=== PATIENT | female | born 1965 | race African-American/Black ===

== ENCOUNTER 2016-10-03 14:21 | Emergency (ER) | payer OTHER ==
--- NOTE | 2016-10-03 15:26 | PHYS DOC ---
General Chief Complaint: BACK PAIN - NO INJURY Stated Complaint: LOW BACK PAIN,URINARY PROBLEMS Time Seen by MD: 14:24 Source: patient Problems: History of Present Illness Initial Comments 50-year-old male patient complaining of dizziness at onset of left flank and back pain for the last 4 days as a constant pain that sometimes radiated to the left lower quadrant. Patient states the pain is aching and atypical pain 6/10. Patient complaining of episodes of diarrhea for the same time and urinary frequency and dysuria. Patient denies fever chills, vomiting, sick contacts, focal neuro deficit, history of kidney stone. Patient didn't take pain medication at home and does not want pain medication in ER. Patient states she has had menstruation regularly and did not have any . Allergies: Coded Allergies: No Known Drug Allergies (Unverified , 10/03/16) Past Medical History Medical History: hypertension Review of Systems Constitutional: no symptoms reported EENTM: no symptoms reported Respiratory: no symptoms reported Cardiovascular: no symptoms reported Gastrointestinal: see HPI Genitourinary: see HPI Musculoskeletal: see HPI Skin: no symptoms reported Psychiatric/Neurological: no symptoms reported Hematologic/Lymphatic: no symptoms reported Immunological/Allergic: no symptoms reported All Other Systems: Reviewed and Negative Physical Exam General Appearance: WD/WN, mild distress Eyes: bilateral eye PERRL, bilateral eye normal inspection Ear, Nose, Throat: hearing grossly normal, normal ENT inspection, normal pharynx Neck: non-tender, full range of motion, supple Respiratory: chest non-tender, lungs clear, normal breath sounds, no respiratory distress Cardiovascular: normal peripheral pulses, regular rate, rhythm, no edema Gastrointestinal: normal bowel sounds, non tender, soft, no organomegaly, no pulsatile mass, other (suprapubic mass) Back: normal inspection, no CVA tenderness, no vertebral tenderness Extremities: normal range of motion, non-tender, normal inspection Neurologic/Psychiatric: no motor/sensory deficits, alert, normal mood/affect Skin: normal color Orders, Labs, Meds CT abdomen and pelvic ultrasound showed large uterine mass. Plan to transfer patient to [facility].Dr Austin accepted the transfer at 1810 Departure Departure: Impression: Primary Impression: Uterine mass Additional Impressions: Flank pain Urinary retention Disposition: XFER OTHER ([facility]) Condition: IMPROVED PRIMO WHITTEN MD Oct 03, 2016 15:26
[2016-10-03 15:29] LABS: BILIRUBIN,URINE NEG (NEG); CLARITY,URINE HAZY; COLOR,URINE STRAW; GLUCOSE,URINE NEG (NEG); NITRITE,URINE NEG (NEG); UROBILINOGEN,URINE 0.2 mg/dL (0.2 mg/dL)
[2016-10-03 15:30] LABS: BACTERIA,URINE FEW /HPF (0-FEW); RBC,URINE 0 /HPF (0-2); SQUAMOUS EPITHELIAL CELL,UR MOD /LPF
--- NOTE | 2016-10-03 15:30 | RAD ---
CT of the abdomen and pelvis without contrast, 10/03/2016: History: Left flank pain Noncontrast scans were obtained utilizing the renal stone protocol. This is a limited study for evaluation of the possibility of urinary tract calculi. There is a large pelvic mass which appears to represent an enlarged uterus. There is an 8 cm exophytic mass arising from the superior aspect of the uterus just to the right of midline. This extends into the lower abdomen. The main portion of the uterus from which this exophytic mass arises measures 10 x 13 x 14 cm and contains a 10 cm mass. There are several other smaller rounded masses producing a lobulated uterine contour. The appearance is that of uterine fibroids. There are numerous pelvic calcifications along the margins of the uterus compatible with phleboliths. There is a tiny 2 mm intrarenal radiopacity on the right compatible with a nonobstructing calculus. The right renal collecting system and proximal right ureter are not dilated. The distal ureters cannot be clearly traced through the pelvis in the presence of this large pelvic mass. The mass is compressing and displacing the partially filled urinary bladder anteriorly. No intrarenal calculi are seen on the left. A small low density area in the lower pole of left kidney is not clearly defined but is most likely a cyst. The left renal collecting system and proximal left ureter are mildly dilated. This is likely due to extrinsic compression by the large uterine mass. The possibility of a distal left ureteral calculus cannot be entirely excluded in the presence of these numerous pelvic calcifications and lack of clear delineation of the distal left ureter. The gallbladder is surgically absent. The unopacified liver is unremarkable. No pancreatic abnormality is seen. The spleen is of normal size. The abdominal aorta is unremarkable. No abdominal or pelvic adenopathy is seen. The bowel loops are not dilated. No free air is evident in the abdomen or pelvis. There is a small amount of free fluid in the cul-de-sac. This amount of fluid can be on a physiologic basis. There are mild to moderate degenerative changes in the lumbar spine. IMPRESSION: 1. Markedly enlarged fibroid uterus as described above. 2. Mild dilatation of the left renal collecting system and proximal left ureter is likely due to extrinsic compression by the enlarged uterus. A distal ureteral calculus cannot be entirely excluded. 3. Small nonobstructing right intrarenal calculus. 4. Probable small left renal cyst. 5. Small amount of free fluid in the pelvis. PQRS Compliance Statement: One or more of the following individualized dose reduction techniques were utilized for this examination: 1. Automated exposure control 2. Adjustment of the mA and/or kV according to patient size 3. Use of iterative reconstruction technique
[2016-10-03 15:31] LABS: YEAST,URINE PRESENT /HPF
[2016-10-03] MEDS ORDERED: IV NORMAL SALINE 500ML 500 ML IV ONE (17:30)
[2016-10-03] MEDS ORDERED: ONDANSETRON PF 4 MG/2 ML VIAL. IV ONE (17:45)
[2016-10-03] MEDS ORDERED: MORPHINE SULFATE 4 MG/ML DISP.SYRIN. IV ONE (17:45)
--- NOTE | 2016-10-03 17:46 | RAD ---
PROCEDURE Pelvic ultrasound with endovaginal imaging. HISTORY Low back pain for 4 days. Pelvic mass. TECHNIQUE Transabdominal imaging was performed for initial evaluation of the pelvis. Endovaginal imaging was performed for optimal characterization of the endometrium. COMPARISON CT abdomen pelvis October 03, 2016. FINDINGS Transabdominal imaging: Uterus measures 14.1 centimeters in length. The uterus is enlarged. Examination is technically difficult secondary to size of the uterus. The endometrium is not well seen. There is evidence of a subserosal, exophytic large uterine mass arising from the right aspect of the fundus measuring 8.8 centimeters in maximum dimension. There is an additional large, heterogeneous mass within what is thought to be the uterine body which measures 8.6 centimeters. A small amount of free fluid is present in the pelvis. The left ovary measures 2.2 x 1.9 x 2.4 centimeters and is unremarkable. Left ovary demonstrates normal vascular flow upon Doppler interrogation. Right ovary is not seen. Endovaginal imaging: Endometrium is not seen. Larger uterine mass which measures 7.4 centimeters in maximum dimension is seen. IMPRESSION 1. Limited examination. 2. There is presence of at least 2 large uterine masses. These are favored to represent uterine leiomyomata, although given large size of the masses, it would be difficult to exclude presence of uterine leiomyosarcoma as they can have identical ultrasound appearances. 3. Small amount of free fluid in the pelvis. This could be within normal limits if patient is premenopausal. Recommend clinical correlation. 4. Left ovary is unremarkable. Right ovary is not visualized. Electronically signed by: Trino Zamudio MD (Oct 03, 2016 17:44:52)
[2016-10-03 17:58] LABS: BASO # 0.1 x10^3/uL (0.0-0.2); BASO % 1 % (0-3); EOS # 0.1 x10^3/uL (0.0-0.7); EOS % 1 % (0-3); HEMATOCRIT 39.8 % (36.0-47.0); HEMOGLOBIN 12.9 g/dL (12.0-15.5); LYMPH # 1.8 x10^3/uL (1.0-4.8); LYMPH % 21 % (24-48); MEAN CORPUSCULAR HEMOGLOBIN 28 pg (25-35); MEAN CORPUSCULAR HGB CONC 33 g/dL (31-37); MEAN CORPUSCULAR VOLUME 87 fL (79-100); MONO # 0.7 x10^3/uL (0.0-1.1); MONO % 9 % (0-9); NEUT # 5.7 x10^3uL (1.8-7.7); NEUT % 68 % (31-73); PLATELET COUNT 272 x10^3/uL (140-400); RED BLOOD COUNT 4.56 x10^6/uL (3.50-5.40); RED CELL DISTRIBUTION WIDTH 14.6 % (11.5-14.5); WHITE BLOOD COUNT 8.5 x10^3/uL (4.0-11.0)
[2016-10-03 18:03] LABS: ALBUMIN 4.4 g/dL (3.4-5.0); GFR 58.2; POTASSIUM 3.6 mmol/L (3.5-5.1); TOTAL BILIRUBIN 0.6 mg/dL (0.2-1.0); TOTAL PROTEIN 8.9 g/dL (6.4-8.2)
[2016-10-03] MEDS ORDERED: MORPHINE SULFATE 2 MG/ML DISP.SYRIN. IV ONE (20:00)
[2016-10-03 20:48] VITALS: BP 111/71
== END 2016-10-03 21:00 | disposition short-term general hospital (02) ==
LOC: ER 14:21
DX: R19.09 Other intra-abdominal and pelvic swelling, mass and lump (principal); R33.9 Retention of urine, unspecified; M54.89 Other dorsalgia; R10.9 Unspecified abdominal pain; I10 Essential (primary) hypertension
CPT/HCPCS: 36415; 74176; 76856; 80053; 81001; 85027; 96361; 96374; 96375; 96376; 99285; J2270; J2405; J7040

== ENCOUNTER 2016-10-13 06:45 | Emergency (ER) | payer OTHER ==
[2016-10-13] MEDS ORDERED: ONDANSETRON PF 4 MG/2 ML VIAL. ONE (06:49)
[2016-10-13] MEDS ORDERED: IV NORMAL SALINE 1,000ML 1,000 ML IV SCH (07:14)
[2016-10-13] MEDS ORDERED: FENTANYL PF 100 MCG/2 ML VIAL. IV PRN (07:15)
[2016-10-13 07:25] LABS: BASO % 1 % (0-3); EOS # 0.2 x10^3/uL (0.0-0.7); EOS % 2 % (0-3); HEMATOCRIT 40.4 % (36.0-47.0); HEMOGLOBIN 13.2 g/dL (12.0-15.5); LYMPH # 1.7 x10^3/uL (1.0-4.8); LYMPH % 20 % (24-48); MEAN CORPUSCULAR HEMOGLOBIN 29 pg (25-35); MEAN CORPUSCULAR HGB CONC 33 g/dL (31-37); MEAN CORPUSCULAR VOLUME 87 fL (79-100); MONO # 0.8 x10^3/uL (0.0-1.1); MONO % 9 % (0-9); NEUT % 69 % (31-73); PLATELET COUNT 270 x10^3/uL (140-400); RED BLOOD COUNT 4.65 x10^6/uL (3.50-5.40); WHITE BLOOD COUNT 8.7 x10^3/uL (4.0-11.0)
[2016-10-13] MEDS ORDERED: FAMOTIDINE 20 MG/2 ML VIAL IVP ONE (07:30)
[2016-10-13] MEDS ORDERED: ONDANSETRON PF 4 MG/2 ML VIAL. IV ONE (07:30)
--- NOTE | 2016-10-13 07:35 | EKG ---
[address] [address] Test Date: 2016-10-13 Test Time: 07:34:46 Pat Name: FRANK LARSON Department: Room: Gender: F Breaker Off: : 1965 Requested By: MINDY RIDER Order Number: [id number] Reading MD: Measurements Intervals [place] Rate: 68 P: 49 ND: 184 QRS: 18 QRSD: 80 T: 9 QT: 418 QTc: 449 Interpretive Statements SINUS RHYTHM QRS(T) CONTOUR ABNORMALITY CONSIDER ANTEROSEPTAL MYOCARDIAL DAMAGE POSSIBLY ABNORMAL ECG RI6.01 Unconfirmed report No previous ECG available for comparison
[2016-10-13 07:36] LABS: ALBUMIN/GLOBULIN RATIO 1.1 (1.0-1.7); CALCIUM 9.1 mg/dL (8.5-10.1); GFR 70.5; MAGNESIUM 1.9 mg/dL (1.8-2.4); POTASSIUM 3.6 mmol/L (3.5-5.1); TOTAL BILIRUBIN 0.4 mg/dL (0.2-1.0); TOTAL PROTEIN 7.8 g/dL (6.4-8.2)
--- NOTE | 2016-10-13 07:43 | PHYS DOC ---
General Chief Complaint: ABDOMINAL PAIN Stated Complaint: N/V Time Seen by MD: 06:47 Source: patient, old records Exam Limitations: no limitations Problems: History of Present Illness Initial Comments Pt is 50/F to ED c/o abdominal pain, n/v. Pt has been dealing with left-sided abdominal pain, primarily left flank with anterior abdomen/LLQ radiation, was prescribed percocet 10mg tablets last week after hospital discharge but pt has only taken 1/2 tablet at a time. Last night approx 1999 pt says she initially took 1/2 tab percocet 10 but about a half hour later she took the other half because the pain was so great. Pain meds were taken with food (chicken). She's had pain all night which prevented her from sleeping, this morning pain brought pt to ED for evaluation. Pt reports that she vomitted x 1 upon ED arrival after which she felt much better. Upon my evaluation zofran already given currently pt denies nausea. Does admit to few days bloating, increased belching. Recent BMs have all been low volume and liquid, no recent solid BMs. Last BM yesterday, pt has been taking opiate pain meds past few weeks. Reports recent intentional weight loss 20 pounds, no colonoscopy history denies melena/hematochezia. Pt was seen [facility] ED 10/03/16 with similar symptoms underwent extensive ED evaluation including CT Abd/Pelvis and Ultrasound. Large (>10cm) uterine masses identified probable fibroids possible leiomyosarcoma due to tumor size, pt was transferred to [facility] for further care. Her symptoms were controlled, oncology Dr Marcia Ness felt masses likely benign and pt scheduled to follow up with wool dyer Dr Chairez as outpatient to schedule TRUE/BSO with appropriate [employer]/Onc if needed. Pt reports scheduling has been difficult as her surgeon had been out of town. Timing/Duration: 24 hours, constant, getting worse Severity: severe Modifying Factors: worse with eating, improves with medication, improves with other Associated Symptoms: malaise, nausea/vomiting, other Allergies: Coded Allergies: No Known Drug Allergies (Unverified , 10/03/16) Past Medical History Medical History: hypertension, other (uterine masses, allergic rhinitis) Surgical History: cholecystectomy (knee x 3) Social History Smoker: quit greater than 1 year Alcohol: occasionally Drugs: none Review of Systems Constitutional: denies chills, denies diaphoresis, denies fever, malaise EENTM: denies blurred vision, denies ear discharge, denies throat pain, denies throat swelling Respiratory: denies cough, denies shortness of breath, denies wheezing Cardiovascular: denies chest pain, denies palpitations, denies syncope Gastrointestinal: see HPI abdominal pain constipation diarrhea nausea vomiting Genitourinary: denies dysuria, denies hematuria Musculoskeletal: denies back pain, denies joint swelling, denies neck pain Psychiatric/Neurological: denies headache, denies numbness, denies paresthesia Hematologic/Lymphatic: denies blood clots, denies easy bleeding, denies easy bruising Physical Exam General Appearance: no apparent distress, obese Eyes: bilateral eye EOMI, bilateral eye PERRL, bilateral eye normal inspection Ear, Nose, Throat: hearing grossly normal, normal ENT inspection, normal pharynx Neck: non-tender, supple Respiratory: normal breath sounds, no respiratory distress Cardiovascular: normal peripheral pulses, regular rate, rhythm Gastrointestinal: soft (distended, distant BS, generalized TTP no focality neg mcburney no r/g) Rectal: deferred Back: no CVA tenderness, no vertebral tenderness Extremities: non-tender, normal inspection 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 PATIENT: FRANK LARSON ACCOUNT: [id number] : 1965 LOCATION: ER AGE: 50 SEX: F EXAM STATUS: REG ER ORD. PHYSICIAN: MINDY RIDER DO REASON: Uterine masses/opiates, n/v/pain/distension r/o obstruction PROCEDURE: ABD PELV W/ IV CONTRAST ONLY Indication abdominal pain, particularly left-sided. Axial images were obtained through the abdomen and pelvis. Approximately 75 cc of Omnipaque 300 was administered intravenously. Note is made of a noncontrast examination 10 days ago. The lung bases are unremarkable. A calcified granuloma is noted at the left lung base. The liver and spleen appear unremarkable. Clips are noted in the gallbladder fossa. No pancreatic pathology is seen. There are no adrenal masses. There is a persistent nephrogram on the left and there is mild dilatation of the left ureter to the level of the pelvis. There are multiple calcifications in the pelvis one of which likely reflects an obstructing calculus. Enlarged fibroid uterus is noted similar to the previous exam. A mass or inflammatory process in the abdomen or pelvis is not seen. There is likely a trace amount of free fluid in the dependent portion of the pelvis. A small cyst associated with the left kidney is noted. IMPRESSION: Moderately high-grade obstructive uropathy on the left likely secondary to a distal ureteral calculus. A KUB is advised for further evaluation and characterization DICTATED AND SIGNED BY: MIKAEL JOYCE MD DATE: 10/13/16834 CC: NON,STAFF; MINDY RIDER DO ~ PATIENT: FRANK LARSON ACCOUNT: [id number] : 1965 LOCATION: ER AGE: 50 SEX: F EXAM STATUS: REG ER ORD. PHYSICIAN: MINDY RIDER DO REASON: Radiologist request further eval n/v abd pain PROCEDURE: KUB Indication left-sided obstructive uropathy. A KUB was obtained following a CT examination of the abdomen and pelvis for which IV contrast was administered. Obstructive uropathy on the left is confirmed. There is left-sided hydronephrosis. The level of obstruction however is not certain. If clinically warranted additional evaluation, regarding the level of obstruction, could be obtained with an additional KUB in approximately 90 minutes. DICTATED AND SIGNED BY: MIKAEL JOYCE MD DATE: 10/13/16901 CC: NON,STAFF; MINDY RIDER DO ~ Yeast noted in urine, received diflucan IV. RAD opinion is stone obstructing left ureter, pt has h/o stones. I discussed with pt that mass effect of fibroids may also be causative. Pt will f/u URO, no UTI with obstruction pt is stable sx controlled I feel she can be discharged with close follow up. Pt expressed agreement/understanding with treatment plan. Departure Time of Disposition: 09:20 Disposition: 01 HOME, SELF-CARE Diagnosis: Uterine mass, L ureterolithiasis with obstruction, Condition: STABLE Patient Instructions: Kidney Stones, Nctg-sm-Kijy, Uterine Fibroid, Easy-to- Read Additional Instructions: Rest, no strenuous activity. Continue current medications. Call Dr Chairez's office tomorrow morning to schedule next available appointment. As discussed you will need to see a urologist. Marci Slade and [facility] [address] [place] [phone] call tomorrow morning to schedule next available appointment. If you do not get in with [employer] or Uro this week, follow up with your doctor in 3 days for recheck. Rx: zofran odt, cephalexin, flomax Return to ED with new or changing symptoms. Discontinue percocet, norco 5mg #30 as written likely better tolerated. Continue stool softeners/fluids. MINDY RIDER DO Oct 13, 2016 07:43
--- NOTE | 2016-10-13 07:58 | RAD ---
Indication abdominal pain nausea and vomiting. Single AP view of the chest was obtained as well as flat and upright films of the abdomen. No prior plain film imaging is available. The heart and pulmonary vessels appear normal. The lungs are clear. The abdominal gas pattern is normal. There is no free air. No organomegaly or abnormal calculi are seen. Occasional phleboliths are noted in the pelvis. Clips are seen in the gallbladder fossa. IMPRESSION: No acute finding seen in the chest or abdomen on plain films
[2016-10-13] MEDS ORDERED: IOHEXOL 300 MG/ML 75 ML VIAL. IV ONE (08:15)
[2016-10-13 08:22] LABS: CLARITY,URINE HAZY; COLOR,URINE YELLOW
[2016-10-13 08:23] LABS: BACTERIA,URINE FEW /HPF (0-FEW); BILIRUBIN,URINE NEG (NEG); GLUCOSE,URINE NEG (NEG); NITRITE,URINE NEG (NEG); SQUAMOUS EPITHELIAL CELL,UR FEW /LPF; UROBILINOGEN,URINE 0.2 mg/dL (0.2 mg/dL); YEAST,URINE PRESENT /HPF
[2016-10-13] MEDS ORDERED: FLUCONAZOLE 200MG/100ML PREMIX 100 ML IV ONE (08:30)
--- NOTE | 2016-10-13 08:46 | RAD ---
Indication abdominal pain, particularly left-sided. Axial images were obtained through the abdomen and pelvis. Approximately 75 cc of Omnipaque 300 was administered intravenously. Note is made of a noncontrast examination 10 days ago. The lung bases are unremarkable. A calcified granuloma is noted at the left lung base. The liver and spleen appear unremarkable. Clips are noted in the gallbladder fossa. No pancreatic pathology is seen. There are no adrenal masses. There is a persistent nephrogram on the left and there is mild dilatation of the left ureter to the level of the pelvis. There are multiple calcifications in the pelvis one of which likely reflects an obstructing calculus. Enlarged fibroid uterus is noted similar to the previous exam. A mass or inflammatory process in the abdomen or pelvis is not seen. There is likely a trace amount of free fluid in the dependent portion of the pelvis. A small cyst associated with the left kidney is noted. IMPRESSION: Moderately high-grade obstructive uropathy on the left likely secondary to a distal ureteral calculus. A KUB is advised for further evaluation and characterization
--- NOTE | 2016-10-13 09:06 | RAD ---
Indication left-sided obstructive uropathy. A KUB was obtained following a CT examination of the abdomen and pelvis for which IV contrast was administered. Obstructive uropathy on the left is confirmed. There is left-sided hydronephrosis. The level of obstruction however is not certain. If clinically warranted additional evaluation, regarding the level of obstruction, could be obtained with an additional KUB in approximately 90 minutes.
[2016-10-13] MEDS ORDERED: CEPH500C PO (09:27)
[2016-10-13] MEDS ORDERED: TAMS0.4C97 PO (09:27)
[2016-10-13] MEDS ORDERED: ONDA4TAB10 PO (09:27)
[2016-10-13 09:34] VITALS: BP 165/95
[2016-10-13] MEDS ORDERED: TAMSULOSIN 0.4 MG CAP.ER.24H. PO ONE (09:45)
[2016-10-13] MEDS ORDERED: HYDR-971 PO (10:40)
== END 2016-10-13 10:45 | disposition home or self-care (01) ==
LOC: ER 06:45
DX: N20.1 Calculus of ureter (principal); N85.8 Other specified noninflammatory disorders of uterus; I10 Essential (primary) hypertension; Z87.891 Personal history of nicotine dependence
CPT/HCPCS: 36415; 74000; 74022; 74177; 80053; 81001; 83690; 83735; 84484; 85027; 93005; 96361; 96365; 96375; 99285; J1450; J2405; Q9967; S0028; J7030

== ENCOUNTER 2018-12-07 09:07 | Emergency (ER) | payer OTHER ==
[~2018-12-07 09:07] MED LIST: CEPH500C PO; HYDR-3165 PO; ONDA4TAB10 PO; TAMS0.4C97 PO
[2018-12-07] MEDS ORDERED: IV NORMAL SALINE 1,000ML 1,000 ML IV ONE (09:30)
[2018-12-07] MEDS ORDERED: ONDANSETRON PF 4 MG/2 ML VIAL. IV ONE (10:00)
[2018-12-07 10:05] LABS: BASO # 0.1 x10^3/uL (0.0-0.2); BASO % 1 % (0-3); EOS # 0.1 x10^3/uL (0.0-0.7); EOS % 1 % (0-3); HEMATOCRIT 40.5 % (36.0-47.0); HEMOGLOBIN 13.2 g/dL (12.0-15.5); LYMPH # 1.5 x10^3/uL (1.0-4.8); LYMPH % 16 % (24-48); MEAN CORPUSCULAR HEMOGLOBIN 28 pg (25-35); MEAN CORPUSCULAR HGB CONC 33 g/dL (31-37); MEAN CORPUSCULAR VOLUME 86 fL (79-100); MONO # 0.6 x10^3/uL (0.0-1.1); MONO % 6 % (0-9); NEUT # 7.3 x10^3uL (1.8-7.7); NEUT % 76 % (31-73); PLATELET COUNT 304 x10^3/uL (140-400); RED BLOOD COUNT 4.72 x10^6/uL (3.50-5.40); RED CELL DISTRIBUTION WIDTH 15.2 % (11.5-14.5); WHITE BLOOD COUNT 9.6 x10^3/uL (4.0-11.0)
--- NOTE | 2018-12-07 10:08 | PHYS DOC ---
Past History Past Medical History: Hypertension Past Surgical History: Cholecystectomy, Hysterectomy, Oophorectomy Alcohol Use: None Drug Use: None Adult General Chief Complaint Chief Complaint: ABDOMINAL PAIN HPI HPI 52-year-old female presents with right-sided flank pain. This started suddenly today after the patient woke up. It is a deep cramping pain in her right flank that radiates around to her right back. She was feeling perfectly normal yesterday. Denies traumas or fall. She has also had a few episodes of vomiting. She has had a bowel movement today that was soft, but not diarrhea. She also noticed that her urine appears to be very dark. Patient has no history of kidney stones. She denies dysuria or increased frequency. She denies fever or chills. Review of Systems Review of Systems Constitutional: Denies fever or chills [] Eyes: Denies change in visual acuity, redness, or eye pain [] HENT: Denies nasal congestion or sore throat [] Respiratory: Denies cough or shortness of breath [] Cardiovascular: No additional information not addressed in HPI [] GI: Right flank pain, vomiting[] : Denies dysuria or hematuria [] Musculoskeletal: Denies back pain or joint pain [] Integument: Denies rash or skin lesions [] Neurologic: Denies headache, focal weakness or sensory changes [] Endocrine: Denies polyuria or polydipsia [] All other systems were reviewed and found to be within normal limits, except as documented in this note. Current Medications Current Medications Current Medications Medications (Trade) Dose Ordered Sig/Kateryna Start Time Stop Time Status Last Admin Dose Admin Ondansetron HCl (Zofran) 4 mg 1X ONCE 12/07/18 10:00 12/07/18 10:01 DC 12/07/18 09:46 4 MG Sodium Chloride 1,000 ml @ 1,000 mls/hr 1X ONCE 12/07/18 09:30 12/07/18 10:29 12/07/18 09:44 1,000 MLS/HR Allergies Allergies Allergies Uncoded Allergies Type Severity Reaction Last Updated Verified po narcotics Adverse Reaction Unknown Nausea and Vomiting 12/07/18 Physical Exam Physical Exam Constitutional: Well developed, obese, well nourished, no acute distress, non- toxic appearance. [] HENT: Normocephalic, atraumatic, bilateral external ears normal, oropharynx moist, no oral exudates, nose normal. [] Eyes: PERRLA, EOMI, conjunctiva normal, no discharge. [] Neck: Normal range of motion, no tenderness, supple, no stridor. [] Cardiovascular:Heart rate regular rhythm, no murmur [] Lungs & Thorax: Bilateral breath sounds clear to auscultation [] Abdomen: Bowel sounds normal, soft, no tenderness, no masses, no pulsatile masses. [] Skin: Warm, dry, no erythema, no rash. [] Back: No tenderness, mild right CVA tenderness. [] Extremities: No tenderness, no cyanosis, no clubbing, ROM intact, no edema. [] Neurologic: Alert and oriented X 3, normal motor function, normal sensory function, no focal deficits noted. [] Psychologic: Affect normal, judgement normal, mood normal. [] Current Patient Data Vital Signs Vital Signs Date Time Temp Pulse Resp B/P (MAP) Pulse Ox O2 Delivery O2 Flow Rate FiO2 12/07/18 09:19 98.1 90 18 96 Room Air EKG EKG [] Radiology/Procedures Radiology/Procedures [] Impressions: EXAM: CT Abdomen and Pelvis without IV contrast CLINICAL HISTORY: Right flank pain. COMPARISON: 10/13/2016, 10/03/1969 TECHNIQUE: Helical CT of the abdomen and pelvis without intravenous contrast. Axial, coronal and sagittal reformatted images were generated. PQRS compliance statement - One or more of the following individualized dose reduction techniques were utilized for this study: 1. Automated exposure control 2. Adjustment of the mA and/or kV according to patient size 3. Use of iterative reconstruction technique FINDINGS: Lack of intravenous contrast limits evaluation of solid organs, vasculature, and lymph nodes. Lower chest: Subpleural linear reticular opacities in lower lobes likely scarring/atelectasis. Left lower lobe calcified granuloma is seen. Abdomen and Pelvis: Cholecystectomy clips are seen. No focal liver lesion. Spleen is unremarkable. Adrenal glands and pancreas are unremarkable. Fat infiltration is seen about the right kidney. There is mild right hydronephrosis and dilation of the proximal right ureter. A 4 mm calculus is seen within the proximal left ureter with mild associated periureteric fat infiltration. A left upper and lower pole renal cystic lesions are seen. Relative hypoattenuation of the right kidney likely from edematous state. Bladder is grossly unremarkable. No left renal calculus. Appendix is normal. No small or large bowel dilatation. Moderate colonic stool content. No abdominal or pelvic ascites. No abdominal pelvic lymphadenopathy. Bones: Degenerative changes of the spine are seen. IMPRESSION: 1. A 4 mm proximal right ureteral calculus results in mild right hydronephrosis and hydroureter. 2. Associated right perinephric and periureteric fat infiltration as well as edematous changes, may be seen with associated pyelonephritis. Electronically signed by: Lg Steven MD (12/07/2018 10:40 AM) [facility] DICTATED AND SIGNED BY: LG STEVEN MD DATE: 12/07/18 1040 CC: MADELAINE HORNER DO; EMIR WRIGHT RN, MSN, SHAKER REPAIRER ~ Course & Med Decision Making Course & Med Decision Making Pertinent Labs and Imaging studies reviewed. (See chart for details) The patient does have a kidney stone. Her urinalysis is negative for infection. There is some fat infiltration on CT that could be suggestive pyelonephritis. See official report for details. The patient does not have a fever and was no sign of infection in the urine. The kidney stone is 4 mm with mild dilation. Given the patient 1 L normal saline, 4 mg Zofran, and 30 mg of Toradol. She does not tend to do well with narcotics. Discussed the patient with Dr. Jalloh, urology and he has advised empiric antibiotics, but does not feel that admission is necessary. I've discussed this plan with the patient and she is in agreement. I will give her 1 g of Rocephin in the ED as well as a prescription for Levofloxacin 750mg for 5 days. [] Dragon Disclaimer Dragon Disclaimer This electronic medical record was generated, in whole or in part, using a voice recognition dictation system. Departure Departure: Impression: Primary Impression: Kidney stone Disposition: 01 HOME, SELF-CARE Condition: STABLE Referrals: EMIR WRIGHT RN, MSN, SHAKER REPAIRER (PCP) Patient Instructions: Kidney Stones, [id number] Additional Instructions: Please call [facility] urology at [phone] to make a follow- up appointment. Drink lots of fluids. If this does not resolve in the next several days, he may need an additional procedure. Please discuss this with urology. If you develop a fever at home, please come back to the emergency room. Scripts Hydrocodone Bit/Acetaminophen (NORCO 5-325 TABLET) 1 Each Tablet 1 TAB PO PRN Q6HRS PRN for PAIN, #10 TAB 0 Refills Prov: MADELAINE HORNER DO 12/07/18 Ondansetron (ONDANSETRON ODT) 4 Mg Tab.rapdis 1-2 TAB PO PRN Q8HRS PRN for NAUSEA/VOMITING, #16 TAB Prov: MADELAINE HORNER DO 12/07/18 Levofloxacin (LEVOFLOXACIN) 750 Mg Tablet 1 TAB PO DAILY for possible pyelonephritis, #5 TAB Prov: MADELAINE HORNER DO 12/07/18 MADELAINE HORNER DO December 07, 2018 10:08
[2018-12-07 10:10] LABS: ALBUMIN 4.1 g/dL (3.4-5.0); CALCIUM 10.1 mg/dL (8.5-10.1); CREATININE 0.6 mg/dL (0.6-1.0); POTASSIUM 4.9 mmol/L (3.5-5.1); TOTAL BILIRUBIN 0.4 mg/dL (0.2-1.0); TOTAL PROTEIN 8.1 g/dL (6.4-8.2)
[2018-12-07 10:12] LABS: GFR 126.1
[2018-12-07] MEDS ORDERED: KETOROLAC 30 MG/ML VIAL. IV ONE (10:40)
--- NOTE | 2018-12-07 10:44 | RAD ---
EXAM: CT Abdomen and Pelvis without IV contrast CLINICAL HISTORY: Right flank pain. COMPARISON: 10/13/2016, 10/03/1969 TECHNIQUE: Helical CT of the abdomen and pelvis without intravenous contrast. Axial, coronal and sagittal reformatted images were generated. PQRS compliance statement - One or more of the following individualized dose reduction techniques were utilized for this study: 1. Automated exposure control 2. Adjustment of the mA and/or kV according to patient size 3. Use of iterative reconstruction technique FINDINGS: Lack of intravenous contrast limits evaluation of solid organs, vasculature, and lymph nodes. Lower chest: Subpleural linear reticular opacities in lower lobes likely scarring/atelectasis. Left lower lobe calcified granuloma is seen. Abdomen and Pelvis: Cholecystectomy clips are seen. No focal liver lesion. Spleen is unremarkable. Adrenal glands and pancreas are unremarkable. Fat infiltration is seen about the right kidney. There is mild right hydronephrosis and dilation of the proximal right ureter. A 4 mm calculus is seen within the proximal left ureter with mild associated periureteric fat infiltration. A left upper and lower pole renal cystic lesions are seen. Relative hypoattenuation of the right kidney likely from edematous state. Bladder is grossly unremarkable. No left renal calculus. Appendix is normal. No small or large bowel dilatation. Moderate colonic stool content. No abdominal or pelvic ascites. No abdominal pelvic lymphadenopathy. Bones: Degenerative changes of the spine are seen. IMPRESSION: 1. A 4 mm proximal right ureteral calculus results in mild right hydronephrosis and hydroureter. 2. Associated right perinephric and periureteric fat infiltration as well as edematous changes, may be seen with associated pyelonephritis. Electronically signed by: Lg Coon MD (12/07/2018 10:40 AM) [facility]
[2018-12-07 11:14] LABS: BILIRUBIN,URINE NEG (NEG); CLARITY,URINE CLOUDY; COLOR,URINE RED; GLUCOSE,URINE NEG (NEG); NITRITE,URINE NEG (NEG); UROBILINOGEN,URINE 0.2 mg/dL (0.2 mg/dL)
[2018-12-07 11:15] LABS: BACTERIA,URINE 0 /HPF (0-FEW); RBC,URINE >40 /HPF (0-2); SQUAMOUS EPITHELIAL CELL,UR OCC /LPF; WBC,URINE OCC /HPF (0-4)
[2018-12-07] MEDS ORDERED: IV NORMAL SALINE 50ML 50 ML ONE (12:10)
[2018-12-07] MEDS ORDERED: cefTRIAXone SODIUM 1 GM VIAL ONE (12:10)
[2018-12-07] MEDS ORDERED: ONDA4TAB12 PO (12:18)
[2018-12-07] MEDS ORDERED: HYDR-3165 PO (12:18)
[2018-12-07] MEDS ORDERED: LEVO750T5 PO (12:18)
[2018-12-07 12:55] VITALS: BP 136/104
== END 2018-12-07 12:55 | disposition home or self-care (01) ==
LOC: ER 09:07
DX: N13.2 Hydronephrosis with renal and ureteral calculous obstruction (principal); R11.11 Vomiting without nausea; I10 Essential (primary) hypertension; Z90.49 Acquired absence of other specified parts of digestive tract; Z90.710 Acquired absence of both cervix and uterus; Z90.722 Acquired absence of ovaries, bilateral
CPT/HCPCS: 36415; 74176; 80053; 81001; 85025; 96361; 96365; 96375; 99285; J0696; J1885; J2405; J7030

== ENCOUNTER 2019-05-01 02:52 | Emergency (ER) | payer OTHER ==
[~2019-05-01] VITALS: Ht 152.4 cm; Wt 84.5 kg
[~2019-05-01 02:52] MED LIST changes: +LEVO750T5 PO; +ONDA4TAB12 PO
--- NOTE | 2019-05-01 02:57 | ED.ADGEN ---
Past History Past Medical History: Hypertension, Other Past Surgical History: Cholecystectomy, Hysterectomy, Oophorectomy Alcohol Use: None Drug Use: None Adult General Chief Complaint Chief Complaint ".. I ve been coughing so much.. I can't sleep.. feel like I ve got a fever.. sore throat.. just feel like yuck.. ".. " I ve been home from [place] two days.. now..." HPI HPI Patient is a 53 year old female who presents with above hx and complaints of fever, cough, sore throat, congestion and malaise. Patient recent travel to [place] for 4 days by air. No specific ill contacts while in [place]. No history immunosuppression. Has had previous episodes of bronchitis and has used an inhaler in the past. Patient has taken some meds at home with no relief of her symptoms. Patient has history of previous hysterectomy and oophorectomy for fibroids. History of renal stones. Patient normally follows at . Review of Systems Review of Systems Constitutional: Complaints of fever or chills [] Eyes: Denies change in visual acuity, redness, or eye pain [] HENT: Complaints of nasal congestion and sore throat [] Respiratory: Complaints of cough and wheezing Cardiovascular: No additional information not addressed in HPI [] GI: Denies abdominal pain, nausea, vomiting, bloody stools or diarrhea [] : Denies dysuria or hematuria [] Musculoskeletal: Denies back pain or joint pain [] Integument: Denies rash or skin lesions [] Neurologic: Denies headache, focal weakness or sensory changes [] Endocrine: Denies polyuria or polydipsia [] All other systems were reviewed and found to be within normal limits, except as documented in this note. Family History Family History Noncontributory Current Medications Current Medications Current Medications Medications (Trade) Dose Ordered Sig/Kateryna Start Time Stop Time Status Last Admin Dose Admin Albuterol Sulfate (Ventolin Hfa Inhaler) 2 puff 1X ONCE 05/01/19 03:30 05/01/19 03:31 DC 05/01/19 03:17 2 PUFF Diphenhydramine HCl (Benadryl) 50 mg 1X ONCE 05/01/19 03:30 05/01/19 03:31 DC 05/01/19 03:31 50 MG Lactated Ringer's 1,000 ml @ 100 mls/hr Q10H 05/01/19 03:30 05/01/19 04:16 DC 05/01/19 03:30 100 MLS/HR Prednisone (Prednisone) 60 mg 1X ONCE 05/01/19 03:30 05/01/19 03:31 DC 05/01/19 03:31 60 MG Allergies Allergies Allergies Coded Allergies Type Severity Reaction Last Updated Verified Opioids - Morphine Analogues Allergy Mild NAUSEA VOMITING PO 05/01/19 Yes Physical Exam Physical Exam Constitutional: Moderate acute distress, non-toxic appearance. [] HENT: Normocephalic, atraumatic, bilateral external ears normal, oropharynx moist, no oral exudates, nose swollen turbinates and rhinorrhea. Eyes: PERRLA, EOMI, conjunctiva normal, no discharge. [] Neck: Normal range of motion, no tenderness, supple, no stridor. [] Cardiovascular: Tachycardia Heart rate regular rhythm, no murmur [] Lungs & Thorax: Bilateral breath sounds equal apex with scattered wheezes on auscultation [patient]currently a dry cough Abdomen: Bowel sounds normal, soft, no tenderness, no masses, no pulsatile masses. []Obese. Multiple surgery scars. Skin: Warm, dry, no erythema, no rash. [] Back: No tenderness, no CVA tenderness. [] Extremities: No tenderness, no cyanosis, no clubbing, ROM intact, ankle edema. [] Neurologic: Alert and oriented X 3, normal motor function, normal sensory function, no focal deficits noted. [] Psychologic: Affect anxious, judgement normal, mood normal. [] Current Patient Data Vital Signs Vital Signs Date Time Temp Pulse Resp B/P (MAP) Pulse Ox O2 Delivery O2 Flow Rate FiO2 05/01/19 03:12 98.1 103 20 97 Room Air Lab Results Laboratory Tests Test 05/01/19 03:05 05/01/19 03:25 Influenza Type A (Rapid) Negative (NEGATIVE) Influenza Type B (Rapid) Negative (NEGATIVE) Group A Streptococcus Rapid Negative (NEGATIVE) White Blood Count 8.4 x10^3/uL (4.0-11.0) Red Blood Count 4.42 x10^6/uL (3.50-5.40) Hemoglobin 12.5 g/dL (12.0-15.5) Hematocrit 38.1 % (36.0-47.0) Mean Corpuscular Volume 86 fL (79-100) Mean Corpuscular Hemoglobin 28 pg (25-35) Mean Corpuscular Hemoglobin Concent 33 g/dL (31-37) Red Cell Distribution Width 14.7 % (11.5-14.5) H Platelet Count 302 x10^3/uL (140-400) Neutrophils (%) (Auto) 66 % (31-73) Lymphocytes (%) (Auto) 19 % (24-48) L Monocytes (%) (Auto) 11 % (0-9) H Eosinophils (%) (Auto) 3 % (0-3) Basophils (%) (Auto) 1 % (0-3) Neutrophils # (Auto) 5.6 x10^3uL (1.8-7.7) Lymphocytes # (Auto) 1.6 x10^3/uL (1.0-4.8) Monocytes # (Auto) 0.9 x10^3/uL (0.0-1.1) Eosinophils # (Auto) 0.3 x10^3/uL (0.0-0.7) Basophils # (Auto) 0.1 x10^3/uL (0.0-0.2) Prothrombin Time 9.7 SEC (9.4-11.4) Prothrombin Time INR 0.9 (0.9-1.1) Activated Partial Thromboplast Time 24 SEC (23-33) D-Dimer (Rissa) 0.65 mg/L (0.00-0.50) H Sodium Level 143 mmol/L (136-145) Potassium Level 3.7 mmol/L (3.5-5.1) Chloride Level 106 mmol/L (98-107) Carbon Dioxide Level 26 mmol/L (21-32) Anion Gap 11 (6-14) Blood Urea Nitrogen 19 mg/dL (7-20) Creatinine 0.6 mg/dL (0.6-1.0) Estimated GFR (Cockcroft-Gault) 125.6 Glucose Level 120 mg/dL (70-99) H Calcium Level 9.0 mg/dL (8.5-10.1) Magnesium Level 2.0 mg/dL (1.8-2.4) Total Bilirubin 0.3 mg/dL (0.2-1.0) Direct Bilirubin 0.1 mg/dL (0.0-0.2) Aspartate Amino Transferase (AST) 17 U/L (15-37) Alanine Aminotransferase (ALT) 19 U/L (14-59) Alkaline Phosphatase 80 U/L (46-116) Creatine Kinase 128 U/L (26-192) Troponin I Quantitative < 0.017 ng/mL (0-0.055) HC-Zud-H-Type Natriuretic Peptide 13 pg/mL (0-124) Total Protein 7.5 g/dL (6.4-8.2) Albumin 3.8 g/dL (3.4-5.0) EKG EKG My interpretation EKG shows a sinus tachycardia at 102 beats. No findings of acute STEMI of contralateral changes does appear to have a mild ventricular block on lead II Radiology/Procedures Radiology/Procedures My interpretation chest x-ray shows borderline cardiac silhouette. No large pulmonary consolidation. Fissures are visible. No free air in the diaphragm. Does have a surgical clips in right upper quadrant of abdomen.[] Course & Med Decision Making Course & Med Decision Making Pertinent Labs and Imaging studies reviewed. (See chart for details) Pt. reports improvement with MDI Tx. Reviewed labs and abnormal labs with Pt. and Partner. Review risk of D- dimer. Pt. currently declines further work up. Will take Prednisone 50 daily, use MDI two puffs four times a day. Benadryl 50 up 4 x day for congestion. Return if any concerns. Follow up with primary. [] Final Impression Final Impression 1. Viral syndrome[] 2. Upper Respiratory Infection 3. Bronchitis. 4. Mild elevation D-dimer 5. Elevated Glucose 120 Dragon Disclaimer Dragon Disclaimer This electronic medical record was generated, in whole or in part, using a voice recognition dictation system. Dragon Disclaimer This chart was dictated in whole or in part using Voice Recognition software in a busy, high-work load, and often noisy Emergency Department environment. It may contain unintended and wholly unrecognized errors or omissions. Dragon Disclaimer This chart was dictated in whole or in part using Voice Recognition software in a busy, high-work load, and often noisy Emergency Department environment. It may contain unintended and wholly unrecognized errors or omissions. GUSTAVO SILVESTRE MD May 01, 2019 02:57
[2019-05-01] MEDS ORDERED: ALBUTEROL SULFATE 8GM INHALER. ONE (03:04)
[2019-05-01 03:12] VITALS: BP 132/86
--- NOTE | 2019-05-01 03:15 | EKG ---
[address] [address] Test Date: 2019-05-01 Test Time: 03:12:55 Pat Name: FRANK LARSON Department: Room: Gender: F Manager Consumer: : 1965 Requested By: GUSTAVO SILVESTRE Order Number: [id number] Reading MD: Measurements Intervals [place] Rate: 102 P: 30 AR: 170 QRS: 34 QRSD: 80 T: 15 QT: 392 QTc: 516 Interpretive Statements SINUS TACHYCARDIA OTHERWISE NORMAL ECG RI6.01 Compared to ECG 10/13/2016 07:34:46 Sinus rhythm no longer present
[2019-05-01] MEDS ORDERED: predniSONE 10 MG TABLET PO ONE (03:30)
[2019-05-01] MEDS ORDERED: ALBUTEROL SULFATE 8GM INHALER. IH ONE (03:30)
[2019-05-01] MEDS ORDERED: IV RINGERS SOLUTION,LACTATED 1,000 ML IV SCH (03:30)
[2019-05-01] MEDS ORDERED: diphenhydrAMINE HCL 25 MG CAPSULE PO ONE (03:30)
[2019-05-01 03:47] LABS: INFLUENZA A PATIENT NEGATIVE (NEGATIVE); INFLUENZA B PATIENT NEGATIVE (NEGATIVE)
[2019-05-01 03:50] LABS: BASO # 0.1 x10^3/uL (0.0-0.2); BASO % 1 % (0-3); EOS # 0.3 x10^3/uL (0.0-0.7); EOS % 3 % (0-3); HEMATOCRIT 38.1 % (36.0-47.0); HEMOGLOBIN 12.5 g/dL (12.0-15.5); LYMPH # 1.6 x10^3/uL (1.0-4.8); LYMPH % 19 % (24-48); MEAN CORPUSCULAR HEMOGLOBIN 28 pg (25-35); MEAN CORPUSCULAR HGB CONC 33 g/dL (31-37); MEAN CORPUSCULAR VOLUME 86 fL (79-100); MONO # 0.9 x10^3/uL (0.0-1.1); MONO % 11 % (0-9); NEUT # 5.6 x10^3uL (1.8-7.7); NEUT % 66 % (31-73); PLATELET COUNT 302 x10^3/uL (140-400); RED BLOOD COUNT 4.42 x10^6/uL (3.50-5.40); RED CELL DISTRIBUTION WIDTH 14.7 % (11.5-14.5); WHITE BLOOD COUNT 8.4 x10^3/uL (4.0-11.0)
[2019-05-01 04:02] LABS: ALBUMIN 3.8 g/dL (3.4-5.0); CREATININE 0.6 mg/dL (0.6-1.0); DIRECT BILIRUBIN 0.1 mg/dL (0.0-0.2); GFR 125.6; POTASSIUM 3.7 mmol/L (3.5-5.1); TOTAL BILIRUBIN 0.3 mg/dL (0.2-1.0); TOTAL PROTEIN 7.5 g/dL (6.4-8.2)
[2019-05-01] MEDS ORDERED: PRED50TA PO (04:07)
--- NOTE | 2019-05-01 06:36 | RAD ---
Study: CHEST PA LATERAL Indication: Cough. Comparison: None. Findings: No lobar consolidation, pleural effusion or pneumothorax. The cardia mediastinal silhouette and hilar structures are within normal limits taking into consideration technique and mildly low lung volumes. Cholecystectomy clips noted. Impression: No acute radiographic abnormality of the chest. Electronically signed by: JAY LÓPEZ MD (05/01/2019 6:33 AM) [facility]
== END 2019-05-01 04:15 | disposition home or self-care (01) ==
LOC: ER 02:52
DX: B34.9 Viral infection, unspecified (principal); J06.9 Acute upper respiratory infection, unspecified; J40 Bronchitis, not specified as acute or chronic; R79.1 Abnormal coagulation profile; R73.9 Hyperglycemia, unspecified; I10 Essential (primary) hypertension; Z88.5 Allergy status to narcotic agent
CPT/HCPCS: 36415; 71046; 80048; 80076; 82550; 83735; 83880; 84443; 84484; 85025; 85379; 85610; 85730; 87070; 87804; 87880; 93005; 94640; 99285; J7120; J7512; J7613; Q0163

== ENCOUNTER 2020-02-03 06:17 | Emergency (ER) | payer OTHER ==
[~2020-02-03] VITALS: Ht 152.4 cm; Wt 91.4 kg
[~2020-02-03 06:17] MED LIST changes: +PRED50TA PO
--- NOTE | 2020-02-03 06:50 | EKG ---
[address] [address] Test Date: 2020-02-03 Test Time: 06:41:24 Pat Name: FRANK LARSON Department: Room: Gender: F Annual Giving Officer: : 1965 Requested By: NICOLLE CASTILLO Order Number: [id number] Reading MD: Measurements Intervals [place] Rate: 90 P: 14 IA: 188 QRS: 21 QRSD: 82 T: 13 QT: 374 QTc: 462 Interpretive Statements SINUS RHYTHM NORMAL ECG RI6.02 No previous ECG available for comparison
[2020-02-03] MEDS ORDERED: LISINOPRIL 10 MG TABLET PO ONE (07:00)
--- NOTE | 2020-02-03 07:07 | PHYS DOC ---
Past History Past Medical History: Hypertension, Other Additional Past Medical Histor: UTERINE MASS Past Surgical History: Cholecystectomy, Hysterectomy, Oophorectomy Alcohol Use: Rarely Drug Use: None General Adult EDM: Chief Complaint: OTHER COMPLAINTS HPI: HPI: Patient is a 54-year-old female who presented to ER today for evaluation of nasal congestion, heart palpitation since yesterday. Patient could not sleep because of the palpitation and congestion. Patient denies any headache, no cough, no fever. Patient denies any chest pain, no abdominal pain, no nausea or vomiting. Patient denies being exposed to anybody who tested positive for COVID-19. Patient had a history of hypertension, she is on lisinopril. Patient had not taken her morning medication today. Patient denies any history of diabetes or history of heart disease. Review of Systems: Review of Systems: Constitutional: Denies fever or chills Eyes: Denies change in visual acuity HENT: Positive for nasal congestion , negative for sore throat. Respiratory: Denies cough or shortness of breath Cardiovascular: Denies chest pain or edema GI: Denies abdominal pain, nausea, vomiting, bloody stools or diarrhea : Denies dysuria Musculoskeletal: Denies back pain or joint pain Integument: Denies rash Neurologic: Denies headache, focal weakness or sensory changes Endocrine: Denies polyuria or polydipsia Lymphatic: Denies swollen glands Psychiatric: Denies depression or anxiety Heart Score: Risk Factors: Risk Factors: DM, Current or recent (<one month) smoker, HTN, HLP, family history of CAD, obesity. Risk Scores: Score 0 - 3: 2.5% MACE over next 6 weeks - Discharge Home Score 4 - 6: 20.3% MACE over next 6 weeks - Admit for Clinical Observation Score 7 - 10: 72.7% MACE over next 6 weeks - Early Invasive Strategies Current Medications: Current Meds: Current Medications Medications (Trade) Dose Ordered Sig/Kateryna Start Time Stop Time Status Last Admin Dose Admin Lisinopril (Prinivil) 20 mg 1X ONCE 02/03/20 07:15 02/03/20 07:16 UNV Allergies: Allergies: Allergies Coded Allergies Type Severity Reaction Last Updated Verified Opioids - Morphine Analogues Allergy Mild NAUSEA VOMITING PO 05/01/19 Yes Physical Exam: PE: Constitutional: Well developed, well nourished, no acute distress, non-toxic appearance. [] HENT: Normocephalic, atraumatic, bilateral external ears normal, oropharynx mois t, no oral exudates, nose normal. [] Eyes: PERRLA, EOMI, conjunctiva normal, no discharge. [] Neck: Normal range of motion, no tenderness, supple, no stridor. [] Cardiovascular:Heart rate regular rhythm, no murmur [] Lungs & Thorax: Bilateral breath sounds clear to auscultation [] Abdomen: Bowel sounds normal, soft, no tenderness, no masses, no pulsatile masses. [] Skin: Warm, dry, no erythema, no rash. [] Back: No tenderness, no CVA tenderness. [] Extremities: No tenderness, no cyanosis, no clubbing, ROM intact, no edema. [] Neurologic: Alert and oriented X 3, normal motor function, normal sensory function, no focal deficits noted. [] Psychologic: Affect normal, judgement normal, mood normal. [] Current Patient Data: Labs: Laboratory Tests Test 02/03/20 06:45 02/03/20 07:00 02/03/20 07:40 Urine Collection Type Unknown Urine Color Yellow Urine Clarity Hazy Urine pH 5.5 Urine Specific [place] 1.020 Urine Protein Neg Urine Glucose (UA) Neg mg/dL Urine Ketones (Stick) Neg mg/dL Urine Blood Neg Urine Nitrite Neg Urine Bilirubin Neg Urine Urobilinogen Dipstick 0.2 mg/dL Urine Leukocyte Esterase Neg Urine RBC 1-2 /HPF Urine WBC 5-10 /HPF Urine Squamous Epithelial Cells Few /LPF Urine Bacteria 0 /HPF White Blood Count 7.1 x10^3/uL Red Blood Count 4.41 x10^6/uL Hemoglobin 12.6 g/dL Hematocrit 38.3 % Mean Corpuscular Volume 87 fL Mean Corpuscular Hemoglobin 29 pg Mean Corpuscular Hemoglobin Concent 33 g/dL Red Cell Distribution Width 14.4 % Platelet Count 285 x10^3/uL Neutrophils (%) (Auto) 63 % Lymphocytes (%) (Auto) 25 % Monocytes (%) (Auto) 9 % Eosinophils (%) (Auto) 2 % Basophils (%) (Auto) 1 % Neutrophils # (Auto) 4.5 x10^3uL Lymphocytes # (Auto) 1.7 x10^3/uL Monocytes # (Auto) 0.6 x10^3/uL Eosinophils # (Auto) 0.1 x10^3/uL Basophils # (Auto) 0.1 x10^3/uL Prothrombin Time 9.3 SEC Prothromb Time International Ratio 0.9 Activated Partial Thromboplast Time 24 SEC Troponin I Quantitative < 0.017 ng/mL QD-Bkn-H-Type Natriuretic Peptide 11 pg/mL Sodium Level 139 mmol/L Potassium Level 3.8 mmol/L Chloride Level 103 mmol/L Carbon Dioxide Level 26 mmol/L Anion Gap 10 Blood Urea Nitrogen 18 mg/dL Creatinine 0.8 mg/dL Estimated GFR (Cockcroft-Gault) 89.8 BUN/Creatinine Ratio 23 Glucose Level 121 mg/dL Calcium Level 9.8 mg/dL Magnesium Level 2.1 mg/dL Total Bilirubin 0.3 mg/dL Aspartate Amino Transf (AST/SGOT) 21 U/L Alanine Aminotransferase (ALT/SGPT) 26 U/L Alkaline Phosphatase 66 U/L Total Protein 8.1 g/dL Albumin 3.9 g/dL Albumin/Globulin Ratio 0.9 Current Medications Medications (Trade) Dose Ordered Sig/Kateryna Route PRN Reason Start Time Stop Time Status Last Admin Dose Admin Lisinopril (Prinivil) 20 mg 1X ONCE PO 02/03/20 07:00 02/03/20 07:05 DC 02/03/20 07:40 Vital Signs: Vital Signs Date Time Temp Pulse Resp B/P (MAP) Pulse Ox O2 Delivery O2 Flow Rate FiO2 02/03/20 06:17 98.3 95 20 189/110 (136) 97 Room Air EKG: EKG: EKG was done 641, heart rate of 90 bpm, normal sinus rhythm, no ST segment elevation [] Radiology/Procedures: Radiology/Procedures: [][address] [address] IMAGING REPORT Signed PATIENT: FRANK LARSON ACCOUNT: [id number] : 1965 LOCATION: ER AGE: 54 SEX: F EXAM STATUS: REG ER ORD. PHYSICIAN: NICOLLE CASTILLO DO REASON: HEART PALPITATION PROCEDURE: PORTABLE CHEST 1V PORTABLE CHEST 1V INDICATION: Reason: HEART PALPITATION / Spl. Instructions: / History: . COMPARISON STUDY: 05/01/2019. FINDINGS: Lungs: Normal lung volume. No pulmonary mass or consolidation. The tracheobronchial tree and hilar structures are normal. Pleura: No pleural effusion or pneumothorax. Heart and Mediastinum: The cardiomediastinal silhouette is normal. The great vessels of the thorax are normal. IMPRESSION: No acute cardiopulmonary process. Electronically signed by: Kirt Roland MD (02/03/2020 7:06 AM) [id number] DICTATED AND SIGNED BY: KIRT ROLAND MD DATE: 02/03/20705 CC: PCP,UNKNOWN; NICOLLE CASTILLO DO ~ Course & Med Decision Making: Course & Med Decision Making Pertinent Labs and Imaging studies reviewed. (See chart for details) Patient is a 54-year-old female who was evaluated in the ER today due to heart palpitation and hypertension. Her lab work and EKG all come back normal. Her blood pressure was elevated, she was given medication in the ER here and her blood pressure was documented 148/94 with heart rate of 73 bpm at 03/15/20. Patient was doing much better, she will be discharged home, she will need to follow-up with a power sewing machine operator for outpatient evaluation of her heart palpitation. Patient is amenable to plan of care. Dragon Disclaimer: Dragon Disclaimer: This electronic medical record was generated, in whole or in part, using a voice recognition dictation system. Departure Departure: Impression: Primary Impression: Hypertension Additional Impressions: Heart palpitations Nasal congestion Disposition: 01 HOME/RESIDENCE PRIOR TO ADM Condition: STABLE Referrals: PCP,UNKNOWN (PCP) please call your family doctor for follow up with your doctor on Friday HOMERO BLACK MD please call this power sewing machine operator for follow up next week about your heart palpitation Patient Instructions: Hypertension, Palpitations, Upper Respiratory Infection, Adult Additional Instructions: Thank you for visiting our Emergency Department. We appreciate you trusting us with your care. If any additional problems come up don't hesitate to return to visit us. Please follow up with your primary care provider so they can plan additional care if needed and know about the problem that you had. If symptoms worsen come back to the Emergency Department. Any concerning symptoms that start such as chest pain, shortness of air, weakness or numbness on one side of the body, running high fevers or any other concerning symptoms return to the ER. Scripts Fluticasone Furoate (Flonase Sensimist) 5.9 Ml [place].susp 5.9 ML NS BID PRN for ALLERGIES for 30 Days, #1 SPRAYS Prov: NICOLLE CASTILLO DO 02/03/20 Justification of Admission: Justification of Admission: Justification of Admission Dx: N/A NICOLLE CASTILLO DO Feb 03, 2020 07:07
[2020-02-03 07:16] LABS: BASO # 0.1 x10^3/uL (0.0-0.2); BASO % 1 % (0-3); EOS # 0.1 x10^3/uL (0.0-0.7); EOS % 2 % (0-3); HEMATOCRIT 38.3 % (36.0-47.0); HEMOGLOBIN 12.6 g/dL (12.0-15.5); LYMPH # 1.7 x10^3/uL (1.0-4.8); LYMPH % 25 % (24-48); MEAN CORPUSCULAR HEMOGLOBIN 29 pg (25-35); MEAN CORPUSCULAR HGB CONC 33 g/dL (31-37); MEAN CORPUSCULAR VOLUME 87 fL (79-100); MONO # 0.6 x10^3/uL (0.0-1.1); MONO % 9 % (0-9); NEUT # 4.5 x10^3uL (1.8-7.7); NEUT % 63 % (31-73); PLATELET COUNT 285 x10^3/uL (140-400); RED BLOOD COUNT 4.41 x10^6/uL (3.50-5.40); RED CELL DISTRIBUTION WIDTH 14.4 % (11.5-14.5); WHITE BLOOD COUNT 7.1 x10^3/uL (4.0-11.0)
[2020-02-03 07:28] LABS: BACTERIA,URINE 0 /HPF (0-FEW); BILIRUBIN,URINE NEG (NEG); CLARITY,URINE HAZY; COLOR,URINE YELLOW; GLUCOSE,URINE NEG (NEG); NITRITE,URINE NEG (NEG); SQUAMOUS EPITHELIAL CELL,UR FEW /LPF; UROBILINOGEN,URINE 0.2 mg/dL (0.2 mg/dL)
[2020-02-03 08:04] LABS: CALCIUM 9.8 mg/dL (8.5-10.1); CREATININE 0.8 mg/dL (0.6-1.0); GFR 89.8; POTASSIUM 3.8 mmol/L (3.5-5.1)
[2020-02-03 08:10] LABS: ALBUMIN 3.9 g/dL (3.4-5.0); ALBUMIN/GLOBULIN RATIO 0.9 (1.0-1.7); TOTAL BILIRUBIN 0.3 mg/dL (0.2-1.0); TOTAL PROTEIN 8.1 g/dL (6.4-8.2)
[2020-02-03] MEDS ORDERED: FLUT9.9S16 NS (08:40)
[2020-02-03 09:00] VITALS: BP 148/94
== END 2020-02-03 09:07 | disposition home or self-care (01) ==
LOC: ER 06:17
DX: I10 Essential (primary) hypertension (principal); R09.81 Nasal congestion; R00.2 Palpitations; Z88.5 Allergy status to narcotic agent
CPT/HCPCS: 36415; 71045; 80053; 81001; 83735; 83880; 84484; 85025; 85610; 85730; 87086; 93005; 99285-25

== ENCOUNTER 2021-02-14 23:54 | Emergency (ER) | payer OTHER ==
[~2021-02-14] VITALS: Ht 154.9 cm; Wt 86.3 kg
[~2021-02-14 23:54] MED LIST changes: +FLUT9.9S16 NS
--- NOTE | 2021-02-15 00:46 | PHYS DOC ---
Past History Past Medical History: Hypertension, Other Additional Past Medical Histor: UTERINE MASS Past Surgical History: Cholecystectomy, Hysterectomy, Oophorectomy Alcohol Use: Rarely Drug Use: None Adult General Chief Complaint Chief Complaint: ABDOMINAL PAIN HPI HPI Patient is a 55-year-old female who presents with a chief complaint of nausea and vomiting. States that it started earlier in the afternoon and has had about 5 or 6 episodes of nonbloody nonbilious emesis. States she thinks she may have ate something bad. Denies any recent traumas, travels, fevers, chest pain, shortness of breath, abdominal pain, dysuria, hematuria, diarrhea or blood in the stool. Denies any alcohol or drug use. Denies any known ill contacts. Review of Systems Review of Systems Review of systems otherwise unremarkable except noted in HPI Allergies Allergies Allergies Coded Allergies Type Severity Reaction Last Updated Verified Opioids - Morphine Analogues Allergy Mild NAUSEA VOMITING PO 02/15/21 Yes Physical Exam Physical Exam Constitutional: Well developed, well nourished, no acute distress, non-toxic appearance. [] HENT: Normocephalic, atraumatic, oropharynx moist, no oral exudates, nose normal. [] Eyes: conjunctiva normal, no discharge. [] Neck: Normal range of motion, no tenderness, supple, no stridor. [] Cardiovascular:Heart rate regular rhythm, no murmur [] Lungs & Thorax: Bilateral breath sounds clear to auscultation [] Abdomen: soft, no tenderness, no masses, no pulsatile masses. [] Skin: Warm, dry, no erythema, no rash. [] Back: no CVA tenderness. [] Extremities: No tenderness, ROM intact, no edema. [] Neurologic: Alert and oriented X 3, no focal deficits noted. [] Psychologic: Affect normal, judgement normal, mood normal. [] EKG EKG [] Radiology/Procedures Radiology/Procedures [] Heart Score C/O Chest Pain: No Risk Factors: Risk Factors: DM, Current or recent (<one month) smoker, HTN, HLP, family history of CAD, obesity. Risk Scores: Risk Factors: DM, Current or recent (<one month) smoker, HTN, HLP, family history of CAD, obesity. Course & Med Decision Making Course & Med Decision Making Patient is a 55-year-old female who presents with nausea vomiting Vital signs not concerning. Physical exam noted above. Peripheral IV placed and IV fluid begun. Given Zofran for nausea. Laboratory analysis notable for leukocytosis. Urinalysis suggestive of urinary tract infection. Started on Keflex in the ED. On reassessment patient stated symptoms had resolved after fluid and medicines. Discussed need for antibiotic regimen. Advised to follow-up tomorrow with her primary care physician. Gave return precautions to the ED. Patient grateful, verbalized understanding and agreed with plan of discharge. Dragon Disclaimer Dragon Disclaimer This electronic medical record was generated, in whole or in part, using a voice recognition dictation system. Departure Departure: Impression: Primary Impression: Urinary tract infection Additional Impression: Abdominal pain Disposition: HOME / SELF CARE / HOMELESS Condition: GOOD Referrals: PCP,UNKNOWN (PCP) MARILYN PALACIOS Patient Instructions: Abdominal Pain (Nonspecific), Urinary Tract Infection Additional Instructions: Thank you for coming into the emergency department tonight and allowing us to take care of you. Please read all the attached information. Please take your antibiotics as prescribed. Please follow-up in the morning with your primary care physician to set up a follow-up visit as soon as you can for reevaluation. Please come back to the ED with new or concerning symptoms as discussed. Scripts Cephalexin (CEPHALEXIN) 500 Mg Capsule 1 CAP PO BID for UTI for 5 Days, #10 CAP Prov: ADA HARVEY MD 02/15/21 Problem Qualifiers ADA HARVEY MD Feb 15, 2021 00:46
[2021-02-15] MEDS ORDERED: ONDANSETRON PF 4 MG/2 ML VIAL. IM ONE (01:30)
[2021-02-15] MEDS ORDERED: IV RINGERS SOLUTION,LACTATED 1,000 ML IV ONE (01:30)
[2021-02-15 01:42] LABS: BASO % 0 % (0-3); EOS # 0.1 x10^3/uL (0.0-0.7); EOS % 1 % (0-3); HEMATOCRIT 39.1 % (36.0-47.0); HEMOGLOBIN 12.8 g/dL (12.0-15.5); LYMPH # 1.4 x10^3/uL (1.0-4.8); LYMPH % 9 % (24-48); MEAN CORPUSCULAR HEMOGLOBIN 28 pg (25-35); MEAN CORPUSCULAR HGB CONC 33 g/dL (31-37); MEAN CORPUSCULAR VOLUME 86 fL (79-100); MONO # 0.7 x10^3/uL (0.0-1.1); MONO % 5 % (0-9); NEUT # 13.1 x10^3uL (1.8-7.7); NEUT % 86 % (31-73); PLATELET COUNT 296 x10^3/uL (140-400); RED BLOOD COUNT 4.53 x10^6/uL (3.50-5.40); RED CELL DISTRIBUTION WIDTH 14.9 % (11.5-14.5); WHITE BLOOD COUNT 15.2 x10^3/uL (4.0-11.0)
[2021-02-15 01:50] LABS: CALCIUM 9.6 mg/dL (8.5-10.1); CREATININE 0.8 mg/dL (0.6-1.0); GFR 89.5; POTASSIUM 3.7 mmol/L (3.5-5.1)
[2021-02-15 01:55] LABS: ALBUMIN 4.2 g/dL (3.4-5.0); ALBUMIN/GLOBULIN RATIO 1.1 (1.0-1.7); TOTAL BILIRUBIN 0.5 mg/dL (0.2-1.0); TOTAL PROTEIN 8.1 g/dL (6.4-8.2)
[2021-02-15 03:18] LABS: CLARITY,URINE CLOUDY; COLOR,URINE YELLOW
[2021-02-15 03:19] LABS: AMORPHOUS SEDIMENT,UR PRESENT /HPF; BACTERIA,URINE FEW /HPF (0-FEW); BILIRUBIN,URINE NEG (NEG); GLUCOSE,URINE NEG (NEG); NITRITE,URINE NEG (NEG); SQUAMOUS EPITHELIAL CELL,UR FEW /LPF; UROBILINOGEN,URINE 0.2 mg/dL (0.2 mg/dL)
[2021-02-15] MEDS ORDERED: CEPH500C PO (03:52)
[2021-02-15] MEDS ORDERED: CEPHALEXIN 250 MG CAPSULE ONE (03:53)
[2021-02-15 03:59] VITALS: BP 119/78
[2021-02-15] MEDS ORDERED: CEPHALEXIN 250 MG CAPSULE PO ONE (04:30)
[2021-02-15 05:17] LABS: % EOS 1 % (0-5); % LYMPHS 9 % (24-48); % MONOS 5 % (0-10); % SEGS 85 % (35-66)
[2021-02-15 05:18] LABS: PLT ESTIMATE ADEQUATE (ADEQUATE)
--- NOTE | 2021-02-15 06:47 | EKG ---
[address] [address] Test Date: 2021-02-15 Test Time: 01:11:09 Pat Name: FRANK LARSON Department: Room: Gender: F [facility]: : 1965 Requested By: ADA HARVEY Order Number: [id number] Reading MD: Measurements Intervals [place] Rate: 75 P: 86 NM: 180 QRS: 133 QRSD: 84 T: -44 QT: 392 QTc: 440 Interpretive Statements SINUS RHYTHM LOW LIMB LEAD VOLTAGE T ABNORMALITY IN INFERIOR LEADS ABNORMAL ECG RI6.02 No previous ECG available for comparison
== END 2021-02-15 04:00 | disposition home or self-care (01) ==
LOC: ER 23:54
DX: N39.0 Urinary tract infection, site not specified (principal); R10.9 Unspecified abdominal pain; R11.2 Nausea with vomiting, unspecified; I10 Essential (primary) hypertension; Z90.49 Acquired absence of other specified parts of digestive tract; Z90.710 Acquired absence of both cervix and uterus; Z90.722 Acquired absence of ovaries, bilateral; Z88.5 Allergy status to narcotic agent
CPT/HCPCS: 36415; 80053; 81001; 83690; 85007; 85025; 87086; 93005; 96360; 96372; 99284; J2405; J7120